=== PATIENT | female | born 1965 | race Two or more races ===

== ENCOUNTER 2022-02-22 09:38 | Emergency (ER) | payer OTHER ==
[~2022-02-22] VITALS: Ht 157.5 cm; Wt 73.0 kg
[2022-02-22 10:30] VITALS: BP 164/105
[2022-02-22] MEDS ORDERED: cefTRIAXone SOD 1,000 MG VL IM ONE (11:00)
[2022-02-22] MEDS ORDERED: CLIN300C8 PO (11:18)
[2022-02-22] MEDS ORDERED: NYS5LQ MT (11:18)
== END 2022-02-22 11:32 | disposition home or self-care (01) ==
LOC: ER 09:38
DX: B37.0 Candidal stomatitis (principal); Z79.899 Other long term (current) drug therapy
CPT/HCPCS: 96372; 99283; J0696